=== PATIENT | male | born 1950 | race Caucasian/White ===

== ENCOUNTER 2017-04-17 00:55 | Inpatient (IN) | payer MEDICAID ==
[~2017-04-17] VITALS: Ht 180.3 cm; Wt 80.3 kg
[~2017-04-17 00:55] MED LIST: LEVO25TA4 PO; MELO7.5T31 PO; METH40TA3 PO; MULT-6 PO
[2017-04-17] MEDS ORDERED: LORazepam 2 MG/ML, 1ML ONE (01:06)
[2017-04-17] MEDS ORDERED: ZIPRASIDONE 20 MG INJ IM ONE ×2 (01:06→01:30)
[2017-04-17 01:29] LABS: HEMATOCRIT 34.6 % (39.2-51.8); HEMOGLOBIN 11.3 g/dL (13.7-18.0); WHITE BLOOD COUNT 21.6 x10^3/uL (3.4-10)
[2017-04-17] MEDS ORDERED: SODIUM CHLORIDE 0.9% 1,000ML IVBOLUS ONE ×3 (01:30→03:30)
[2017-04-17] MEDS ORDERED: LORazepam 2 MG/ML, 1ML IVPush ONE (01:30)
[2017-04-17 01:56] LABS: BLOOD UREA NITROGEN 78 mg/dL (7-18)
[2017-04-17 01:58] LABS: ACETAMINOPHEN < 2 mcg/mL (10-30)
[2017-04-17] MEDS ORDERED: KETAMINE 10 MG/ML, 20ML ONE (02:10)
[2017-04-17 02:11] LABS: DAU SCREEN DISCLAIMER
[2017-04-17] MEDS ORDERED: KETAMINE 10 MG/ML, 20ML IV ONE (02:30)
[2017-04-17] MEDS ORDERED: SODIUM CHLORIDE 0.9% 1,000 ML IV ONE (02:47)
[2017-04-17] MEDS ORDERED: LIDOCAINE 1%, 20ML ONE (02:58)
[2017-04-17] MEDS ORDERED: VANCOMYCIN 1,500 MG in SODIUM CHLORIDE 0.9% 250 ML IV ONE (03:00)
[2017-04-17] MEDS ORDERED: CEFTRIAXONE PMX 2GM/50ML 50 ML IV SCH (03:00)
[2017-04-17] MEDS ORDERED: VANCOMYCIN PER PHARMACY MC PRN (03:00)
[2017-04-17] MEDS ORDERED: methylPREDNISolone SOD SUCC 125 MG/2 ML IVPush ONE (03:00)
[2017-04-17] MEDS ORDERED: methylPREDNISolone SOD SUCC 125 MG/2 ML ONE (03:33)
[2017-04-17] MEDS ORDERED: CEFTRIAXONE PMX 2GM/50ML 50 ML ONE (03:33)
[2017-04-17] MEDS: SODIUM CHLORIDE 0.9% 1,000 ML IV SCH ×4 (04:37→23:31)
[2017-04-17] MEDS ORDERED: ONDANSETRON 2MG/ML, 2ML IVPush PRN (05:00)
[2017-04-17] MEDS ORDERED: hydrALAzine 20 MG/ML, 1ML IVPush PRN (05:00)
[2017-04-17 05:30] LABS: HEMATOCRIT 35.5 % (39.2-51.8); HEMOGLOBIN 11.5 g/dL (13.7-18.0); WHITE BLOOD COUNT 22.4 x10^3/uL (3.4-10)
[2017-04-17 05:36] LABS: ASPARTATE AMINO TRANSFERASE 127 U/L (15-37)
[2017-04-17 05:43] LABS: BLOOD UREA NITROGEN 73 mg/dL (7-18)
[2017-04-17 05:50] LABS: IS PT STATUS REG ER OR PRE ER? YES
[2017-04-17 08:00] VITALS: BP 124/78
[2017-04-17] MEDS: HEPARIN 5,000 UNITS/ML, 1ML SQ SCH ×3 (08:03→22:05)
[2017-04-17 11:13] LABS: IS PT STATUS REG ER OR PRE ER? NO
[2017-04-17] MEDS: QUETIAPINE 25MG TABLET PO PRN (12:46)
[2017-04-17 13:05] VITALS: BP 153/70
[2017-04-17 20:00] VITALS: BP 106/62
[2017-04-17] MEDS: LORazepam 2 MG/ML, 1ML IVPush PRN (22:27)
[2017-04-18 02:00] VITALS: BP 182/90
[2017-04-18] MEDS: QUETIAPINE 25MG TABLET PO PRN (02:01)
[2017-04-18 02:29] VITALS: BP 152/85
[2017-04-18] MEDS: LORazepam 2 MG/ML, 1ML IVPush PRN (04:49)
[2017-04-18] MEDS: SODIUM CHLORIDE 0.9% 1,000 ML IV SCH (05:42)
[2017-04-18 05:48] LABS: HEMATOCRIT 30.1 % (39.2-51.8); HEMOGLOBIN 9.9 g/dL (13.7-18.0); WHITE BLOOD COUNT 18.5 x10^3/uL (3.4-10)
[2017-04-18 05:55] LABS: BLOOD UREA NITROGEN 50 mg/dL (7-18)
[2017-04-18 08:19] VITALS: BP 168/79
[2017-04-18] MEDS: HEPARIN 5,000 UNITS/ML, 1ML SQ SCH ×2 (09:33→21:10)
[2017-04-18] MEDS: DEXTROSE 5% 1,000 ML IV SCH ×2 (09:34→19:55)
[2017-04-18 14:37] VITALS: BP 152/86
[2017-04-18] MEDS: ACETAMINOPHEN 325 MG TABLET PO PRN ×2 (18:40→22:29)
[2017-04-18 20:00] VITALS: BP 124/68
[2017-04-18] MEDS: ALUMINUM/MAG/SIMETHICONE 30 ML UDC PO PRN (21:09)
[2017-04-18] MEDS: KETOROLAC 30 MG/1 ML IVPush PRN (23:10)
[2017-04-19] MEDS: LORazepam 2 MG/ML, 1ML IVPush PRN (00:59)
[2017-04-19 02:00] VITALS: BP 130/74
[2017-04-19] MEDS: ACETAMINOPHEN 325 MG TABLET PO PRN (03:09)
[2017-04-19] MEDS: KETOROLAC 30 MG/1 ML IVPush PRN ×2 (05:29→12:18)
[2017-04-19] MEDS: DEXTROSE 5% 1,000 ML IV SCH (05:29)
[2017-04-19 05:52] LABS: HEMOGLOBIN 9.9 g/dL (13.7-18.0); WHITE BLOOD COUNT 11.6 x10^3/uL (3.4-10)
[2017-04-19 05:57] LABS: BLOOD UREA NITROGEN 21 mg/dL (7-18)
[2017-04-19 06:17] VITALS: BP 151/88
[2017-04-19 06:59] LABS: DIFF TOTAL CELLS COUNTED 100 CELL DIFF
[2017-04-19 07:50] VITALS: BP 172/95
[2017-04-19] MEDS ORDERED: POTASSIUM CHLORIDE 10 MEQ in SODIUM CHLORIDE 0.9% 1,000 ML IV SCH (08:00)
[2017-04-19] MEDS: HEPARIN 5,000 UNITS/ML, 1ML SQ SCH ×2 (09:21→21:34)
[2017-04-19] MEDS: POTASSIUM CHLORIDE 10 MEQ in SODIUM CHLORIDE 0.9% 1,000 ML IV SCH ×2 (09:23→19:53)
[2017-04-19] MEDS: BUTALB/APAP/CAFFEINE 50MG/325MG/40MG PO PRN ×3 (10:01→21:34)
[2017-04-19 14:09] VITALS: BP 142/86
[2017-04-19 21:19] VITALS: BP 123/89
[2017-04-19] MEDS: QUETIAPINE 25MG TABLET PO PRN (21:34)
[2017-04-20] MEDS: KETOROLAC 30 MG/1 ML IVPush PRN ×3 (00:44→18:34)
[2017-04-20] MEDS: LORazepam 2 MG/ML, 1ML IVPush PRN ×5 (00:57→22:53)
[2017-04-20 01:45] VITALS: BP 123/79
[2017-04-20] MEDS: BUTALB/APAP/CAFFEINE 50MG/325MG/40MG PO PRN ×2 (04:28→11:39)
[2017-04-20] MEDS: POTASSIUM CHLORIDE 10 MEQ in SODIUM CHLORIDE 0.9% 1,000 ML IV SCH ×3 (06:02→18:38)
[2017-04-20 06:31] LABS: HEMATOCRIT 30.6 % (39.2-51.8); HEMOGLOBIN 10.1 g/dL (13.7-18.0); WHITE BLOOD COUNT 8.9 x10^3/uL (3.4-10)
[2017-04-20 06:47] LABS: BLOOD UREA NITROGEN 15 mg/dL (7-18)
[2017-04-20 07:09] LABS: DIFF TOTAL CELLS COUNTED 100 CELL DIFF
[2017-04-20 07:10] LABS: VERIFY COUNTS? YES
[2017-04-20 07:31] VITALS: BP 132/94
[2017-04-20] MEDS ORDERED: POTASSIUM CHLORIDE 10 MEQ in SODIUM CHLORIDE 0.9% 1,000 ML IV SCH (08:00)
[2017-04-20] MEDS: HEPARIN 5,000 UNITS/ML, 1ML SQ SCH ×2 (09:33→20:38)
[2017-04-20] MEDS ORDERED: HYDROcodone/APAP 5/325 TABLET ONE (10:13)
[2017-04-20] MEDS: HYDROcodone/APAP 5/325 TABLET PO PRN (10:14)
[2017-04-20 11:26] LABS: VERIFY COUNTS? YES
[2017-04-20 11:27] LABS: ANISOCYTOSIS 1+
[2017-04-20 12:22] VITALS: BP 123/73
[2017-04-20 19:12] VITALS: BP 123/86
[2017-04-20] MEDS ORDERED: QUETIAPINE 25MG TABLET PO SCH (21:00)
[2017-04-21 03:00] VITALS: BP 126/58
[2017-04-21 05:25] LABS: HEMATOCRIT 33.5 % (39.2-51.8); WHITE BLOOD COUNT 8.5 x10^3/uL (3.4-10)
[2017-04-21 05:44] LABS: BLOOD UREA NITROGEN 20 mg/dL (7-18)
[2017-04-21] MEDS: BUTALB/APAP/CAFFEINE 50MG/325MG/40MG PO PRN ×4 (05:50→22:46)
[2017-04-21] MEDS: HYDROcodone/APAP 5/325 TABLET PO PRN ×2 (05:58→13:02)
[2017-04-21 06:58] VITALS: BP 122/62
[2017-04-21] MEDS: HEPARIN 5,000 UNITS/ML, 1ML SQ SCH ×2 (10:55→20:45)
[2017-04-21] MEDS: LORazepam 2 MG/ML, 1ML IVPush PRN ×2 (10:58→17:29)
[2017-04-21 13:37] VITALS: BP 153/97
[2017-04-21] MEDS: QUETIAPINE 25MG TABLET PO PRN (18:46)
[2017-04-21] MEDS ORDERED: HYDROcodone/APAP 5/325 TABLET PO PRN (19:30)
[2017-04-21] MEDS ORDERED: ACETAMINOPHEN 325 MG TABLET PO PRN (19:30)
[2017-04-21] MEDS ORDERED: hydrALAzine 20 MG/ML, 1ML IVPush PRN (19:30)
[2017-04-21] MEDS ORDERED: ONDANSETRON 2MG/ML, 2ML IVPush PRN (19:30)
[2017-04-21 20:19] VITALS: BP 123/82
[2017-04-21] MEDS: KETOROLAC 30 MG/1 ML IVPush PRN (20:46)
[2017-04-21] MEDS ORDERED: QUETIAPINE 25MG TABLET PO SCH (21:00)
[2017-04-22 01:31] VITALS: BP 124/88
[2017-04-22] MEDS: LORazepam 2 MG/ML, 1ML IVPush PRN ×2 (01:57→08:53)
[2017-04-22] MEDS: ALUMINUM/MAG/SIMETHICONE 30 ML UDC PO PRN (01:57)
[2017-04-22] MEDS: BUTALB/APAP/CAFFEINE 50MG/325MG/40MG PO PRN (02:58)
[2017-04-22 05:33] LABS: BLOOD UREA NITROGEN 21 mg/dL (7-18); HEMOGLOBIN 10.6 g/dL (13.7-18.0)
[2017-04-22 05:46] LABS: DIFF TOTAL CELLS COUNTED 100 CELL DIFF
[2017-04-22 05:48] LABS: VERIFY COUNTS? YES
[2017-04-22 05:49] LABS: ANISOCYTOSIS 1+; POLYCHROMASIA 1+
[2017-04-22 08:12] VITALS: BP 134/82
[2017-04-22] MEDS: HEPARIN 5,000 UNITS/ML, 1ML SQ SCH (08:53)
== END 2017-04-22 11:00 | disposition left against medical advice (07) | DRG 682 ==
LOC: ED 01:33 → EDIP 03:53 → 4WST 07:10
PROVIDERS: ADMIT Hospitalist; ATTEND Hospitalist
PROC: 009U3ZX Drainage of Spinal Canal, Percutaneous Approach, Diagnostic (ICD-10-PCS; principal; 2017-04-17)
DX: N17.9 Acute kidney failure, unspecified (principal); G92 Toxic encephalopathy; E87.0 Hyperosmolality and hypernatremia; E87.2 Acidosis; M62.82 Rhabdomyolysis; D64.9 Anemia, unspecified; E03.9 Hypothyroidism, unspecified; D72.829 Elevated white blood cell count, unspecified; E87.5 Hyperkalemia; F11.90 Opioid use, unspecified, uncomplicated; F17.200 Nicotine dependence, unspecified, uncomplicated; F19.959 Other psychoactive substance use, unspecified with psychoactive substance-induced psychotic disorder, unspecified
CPT/HCPCS: 36415; 70450; 71010; 80048; 80053; 80307; 80329; 81001; 82040; 82550; 82962; 83036; 83605; 83735; 84145; 84443; 84484; 85025; 87040; 93005; 96361; 96365; 96366; 96372; 96375; 99152; 99153; J0696; J1644; J1885; J3370; J3480; J3486; J7070; G0479; G0480; J2060; J2930; J7030; J7050